=== PATIENT | female | born 1995 | race Asian ===

== ENCOUNTER → 2021-06-18 | Outpatient (CLI) | payer BC ==
[2021-06-18 14:14] LABS: BASOPHILS % 0.6 % (0.0-2.0); EOSINOPHILS % 1.7 % (0.0-5.0); HEMATOCRIT. 38.5 % (36.0-48.0); HEMOGLOBIN. 12.8 g/dL (12.0-16.0); LYMPHOCYTES % 28.3 % (20.0-50.0); MEAN CORPUSCULAR HEMOGLOBIN 28.5 pg (28.0-32.0); MEAN CORPUSCULAR VOLUME 85.7 fL (81.0-99.0); MEAN PLATELET VOLUME 8.7 fl (7.4-10.4); MONOCYTES % 5.3 % (2.0-8.0); NEUTROPHILS % 64.1 % (40.0-76.0); PLATELET 235 x1000/uL (130-400); RED BLOOD CELL COUNT 4.49 mill/uL (4.2-5.4); RED CELL DISTRIBUTION WIDTH 14.4 % (11.6-14.6)
[2021-06-18 14:30] LABS: CLARITY URINE CLOUDY (CLEAR); COLOR URINE YELLOW (YELLOW); KETONES URINE NEGATIVE (NEGATIVE); LEUKOCYTE ESTERASE URINE TRACE (NEGATIVE); NITRITE URINE NEGATIVE (NEGATIVE); OCCULT BLOOD URINE NEGATIVE (NEGATIVE); PROTEIN URINE NEGATIVE (NEGATIVE); SPECIFIC GRAVITY URINE 1.019 (1.005-1.030); UROBILINOGEN URINE 0.2 E.U./dL (0.2-1.0)
[2021-06-18 15:19] LABS: CHLORIDE 108 mEq/L (98-107)
[2021-06-18 15:26] LABS: LDL CHOLESTEROL 82 mg/dL (5-100)
[2021-06-18 15:27] LABS: HDL CHOLESTEROL 60 mg/dL (40-59); TOTAL IRON BINDING CAPACITY 402 ug/dL (250-450)
[2021-06-18 15:29] LABS: T4 FREE 1.14 ng/dL (0.76-1.46)
[2021-06-18 16:14] LABS: FOLIC ACID (FOLATE) SERUM 9.7 ng/mL (>5.38)
== END | disposition home or self-care (01) ==
LOC: LAB 13:42
PROVIDERS: ATTEND Family Medicine Adult Medicine
DX: Z00.00 Encounter for general adult medical examination without abnormal findings (principal); E55.9 Vitamin D deficiency, unspecified; R10.9 Unspecified abdominal pain
CPT/HCPCS: 36415; 80053; 80061; 81003; 82306; 82607; 82728; 82746; 83036; 83540; 83550; 84439; 84443; 85025

== ENCOUNTER 2021-10-21 10:17 | Emergency (ER) | payer BC, OTHER ==
[~2021-10-21] VITALS: Ht 162.6 cm; Wt 57.0 kg
[2021-10-21 11:31] LABS: BASOPHILS % 0.4 % (0.0-2.0); EOSINOPHILS % 1.4 % (0.0-5.0); HEMATOCRIT. 41.1 % (36.0-48.0); HEMOGLOBIN. 13.6 g/dL (12.0-16.0); LYMPHOCYTES % 28.8 % (20.0-50.0); MEAN CORPUSCULAR VOLUME 90.9 fL (81.0-99.0); MONOCYTES % 4.5 % (2.0-8.0); NEUTROPHILS % 64.9 % (40.0-76.0); PLATELET 228 x1000/uL (130-400); RED BLOOD CELL COUNT 4.53 mill/uL (4.2-5.4); RED CELL DISTRIBUTION WIDTH 13.4 % (11.6-14.6)
[2021-10-21 11:39] VITALS: BP 127/75
[2021-10-21 11:40] LABS: CHLORIDE 106 mEq/L (98-107)
[2021-10-21 12:05] LABS: HCG SCREEN NEGATIVE
[2021-10-21 13:03] LABS: HEPATITIS B SURFACE AB 424.2 mIU/mL
[2021-10-21 13:14] LABS: HEPATITIS B SURFACE ANTIGEN NEGATIVE
[2021-10-23 04:10] LABS: HIV SCREEN 4G Non Reactive (Non Reactive)
== END 2021-10-21 11:41 | disposition home or self-care (01) ==
LOC: ER 10:17
DX: S61.432A Puncture wound without foreign body of left hand, initial encounter (principal); X58.XXXA Exposure to other specified factors, initial encounter; Y93.89 Activity, other specified; Y92.89 Other specified places as the place of occurrence of the external cause; Y99.8 Other external cause status
CPT/HCPCS: 36415; 80053; 84703; 85025; 86703; 87389; 99283